=== PATIENT | female | born 1975 | race African-American/Black ===

== ENCOUNTER 2020-08-03 09:16 | Inpatient (IN) ==
[2020-08-03] MEDS ORDERED: AZITHROMYCIN 250 MG TABLET PO STA (10:57)
[2020-08-03] MEDS ORDERED: cefTRIAXone 1,000 MG in SODIUM CHLORIDE 0.9% 100 ML IV STA (10:57)
[2020-08-03 11:02] LABS: Basophils % 0.1 % (0.0-0.8); Hematocrit 41.1 VOL% (35.7-47.0); Hemoglobin 12.8 GM/DL (12.0-16.0); Immature Granulocytes % 0.8 %; Immature Granulocytes Absolute 0.07 #; Lymphocytes # 1.8 10*3/uL (1.4-4.0); Lymphocytes % 19.3 % (21.3-54.2); Mean Corpuscular HGB Conc 31.1 GM/DL (32-36); Mean Corpuscular Volume 90.1 FL (87-102); Mean Platelet Volume 9.8 FL (9.6-12.0); Monocytes % 5.3 % (1.7-12.7); Neutrophils % 74.5 % (38.7-73.9); Platelet Count 261 T/CUMM (130-400); Red Blood Count 4.56 MC/CUMM (3.8-5.5); Red Cell Distribution Width 12.7 % (9.3-17.3); White Blood Count 9.1 T/CUMM (4-12)
[2020-08-03 11:26] LABS: Calcium 8.8 MG/DL (8.5-10.1); Ferritin 521.2 ng/ml (8-252); Osmolality,Calculated 275.5 MOS/KG (273-304); Potassium 3.6 MMOL/L (3.5-5.1); Total Protein 7.4 G/DL (6.4-8.2)
[2020-08-03] MEDS ORDERED: MELATONIN 3 MG TABLET PO PRN (12:28)
[2020-08-03] MEDS ORDERED: DOCUSATE SODIUM 100 MG CAPSULE PO PRN (12:34)
[2020-08-03] MEDS: ACETAMINOPHEN 325 MG TABLET PO PRN (14:00)
[2020-08-03] MEDS: DEXAMETHASONE 4 MG/1 ML VIAL IV SCH (14:20)
[2020-08-03] MEDS: CETIRIZINE 10 MG TABLET PO SCH (14:26)
[2020-08-03] MEDS: ENOXAPARIN 60 MG/0.6 ML SYRINGE SUBCUT SCH (14:26)
[2020-08-03] MEDS ORDERED: AZITHROMYCIN INJ 500 MG in SODIUM CHLORIDE 0.9% 250 ML IV ONE (14:30)
[2020-08-03] MEDS ORDERED: REMDESIVIR 200 MG in SODIUM CHLORIDE 0.9% 210 ML IV ONE (15:30)
[2020-08-03] MEDS ORDERED: SODIUM CHLORIDE 0.9% 1,000 ML IV PRN (15:51)
[2020-08-03] MEDS: FAMOTIDINE 20 MG TABLET PO SCH (21:35)
[2020-08-03] MEDS: ASCORBIC ACID 500 MG TABLET PO SCH (21:35)
[2020-08-04 06:25] LABS: Hematocrit 40.3 VOL% (35.7-47.0); Hemoglobin 12.4 GM/DL (12.0-16.0); Immature Granulocytes % 1.2 %; Immature Granulocytes Absolute 0.08 #; Lymphocytes # 0.9 10*3/uL (1.4-4.0); Lymphocytes % 12.7 % (21.3-54.2); Mean Corpuscular HGB Conc 30.8 GM/DL (32-36); Mean Corpuscular Volume 91.6 FL (87-102); Mean Platelet Volume 10.1 FL (9.6-12.0); Monocytes % 4.4 % (1.7-12.7); Neutrophils % 81.7 % (38.7-73.9); Platelet Count 275 T/CUMM (130-400); Red Cell Distribution Width 12.8 % (9.3-17.3); White Blood Count 6.8 T/CUMM (4-12)
[2020-08-04 06:38] LABS: Albumin 2.6 G/DL (3.4-5.0); Bilirubin,Total 0.8 MG/DL (0.2-1.0); Calcium 9.1 MG/DL (8.5-10.1); Osmolality,Calculated 277.4 MOS/KG (273-304); Potassium 3.4 MMOL/L (3.5-5.1); Total Protein 7.7 G/DL (6.4-8.2)
[2020-08-04 06:39] LABS: Albumin 2.6 G/DL (3.4-5.0); Bilirubin,Direct 0.16 MG/DL (0.0-0.20); Bilirubin,Indirect 1.3 MG/DL (0.0-1.0); Bilirubin,Total 1.5 MG/DL (0.2-1.0); Total Protein 7.8 G/DL (6.4-8.2)
[2020-08-04] MEDS ORDERED: CELECOXIB 200 MG CAPSULE PO PRN (07:04)
[2020-08-04] MEDS: LEVOTHYROXINE 125 MCG TABLET PO SCH (08:12)
[2020-08-04] MEDS: FAMOTIDINE 20 MG TABLET PO SCH ×2 (08:12→20:36)
[2020-08-04] MEDS: POTASSIUM CHLORIDE 20 MEQ TABLET PO PRN ×3 (08:13→14:07)
[2020-08-04] MEDS: ASCORBIC ACID 500 MG TABLET PO SCH ×2 (08:13→20:36)
[2020-08-04] MEDS: ZINC GLUCONATE 50 MG TABLET PO SCH (08:13)
[2020-08-04] MEDS: CHOLECALCIFEROL 1,000 UNIT TABLET PO SCH (08:13)
[2020-08-04] MEDS: CETIRIZINE 10 MG TABLET PO SCH (08:15)
[2020-08-04] MEDS: METOPROLOL SUCCINATE XL 50 MG TABLET PO SCH (08:16)
[2020-08-04] MEDS: amLODIPine 5 MG TABLET PO SCH ×2 (08:16→20:36)
[2020-08-04] MEDS: ENOXAPARIN 60 MG/0.6 ML SYRINGE SUBCUT SCH ×2 (08:17→20:36)
[2020-08-04] MEDS: DEXAMETHASONE 4 MG/1 ML VIAL IV SCH (08:18)
[2020-08-04] MEDS: cefTRIAXone 1,000 MG in SODIUM CHLORIDE 0.9% 100 ML IV SCH (08:18)
[2020-08-04] MEDS ORDERED: CETIRIZINE 10 MG TABLET PO SCH (09:00)
[2020-08-04] MEDS ORDERED: DEXAMETHASONE 4 MG/1 ML VIAL IV SCH (09:00)
[2020-08-04] MEDS: MESALAMINE 1.2 GM PO SCH (09:57)
[2020-08-04] MEDS: REMDESIVIR 100 MG in SODIUM CHLORIDE 0.9% 100 ML IV SCH (09:58)
[2020-08-04 13:25] LABS: Hepatitis B Core IgM Quant 0.08 Index; Hepatitis B Surface Ag Quant < 0.10 Index; Hepatitis B Surface Ag Result Non-Reactive (NonReactive); Hepatitis C Virus Ab Quant 0.16 Index; Hepatitis C Virus Ab Result Non-Reactive (NonReactive)
[2020-08-04] MEDS: ACETAMINOPHEN 325 MG TABLET PO PRN (17:55)
[2020-08-04 18:08] VITALS: BP 119/89
[2020-08-04] MEDS: cloNIDine 0.1 MG TABLET PO SCH (20:58)
[2020-08-05 05:08] LABS: Basophils % 0.1 % (0.0-0.8); Eosinophils % 0.1 % (0.00-10.9); Hematocrit 39.8 VOL% (35.7-47.0); Hemoglobin 12.2 GM/DL (12.0-16.0); Immature Granulocytes % 1.1 %; Lymphocytes # 2.1 10*3/uL (1.4-4.0); Lymphocytes % 22.8 % (21.3-54.2); Mean Corpuscular HGB Conc 30.7 GM/DL (32-36); Mean Corpuscular Volume 92.1 FL (87-102); Mean Platelet Volume 10.2 FL (9.6-12.0); Neutrophils % 69.9 % (38.7-73.9); Platelet Count 333 T/CUMM (130-400); Red Blood Count 4.32 MC/CUMM (3.8-5.5); Red Cell Distribution Width 13.1 % (9.3-17.3); White Blood Count 9.2 T/CUMM (4-12)
[2020-08-05] MEDS: LEVOTHYROXINE 125 MCG TABLET PO SCH (06:16)
[2020-08-05 06:54] LABS: Albumin 2.7 G/DL (3.4-5.0); Bilirubin,Total 0.5 MG/DL (0.2-1.0); Calcium 9.3 MG/DL (8.5-10.1); Osmolality,Calculated 279.3 MOS/KG (273-304); Potassium 3.5 MMOL/L (3.5-5.1); Total Protein 7.8 G/DL (6.4-8.2)
[2020-08-05] MEDS: POTASSIUM CHLORIDE 20 MEQ TABLET PO PRN ×2 (08:11→10:42)
[2020-08-05] MEDS: METOPROLOL SUCCINATE XL 50 MG TABLET PO SCH (08:11)
[2020-08-05] MEDS: CETIRIZINE 10 MG TABLET PO SCH (08:11)
[2020-08-05] MEDS: ASCORBIC ACID 500 MG TABLET PO SCH ×2 (08:11→20:59)
[2020-08-05] MEDS: ZINC GLUCONATE 50 MG TABLET PO SCH (08:11)
[2020-08-05] MEDS: CHOLECALCIFEROL 1,000 UNIT TABLET PO SCH (08:11)
[2020-08-05] MEDS: FAMOTIDINE 20 MG TABLET PO SCH ×2 (08:11→20:59)
[2020-08-05] MEDS: DEXAMETHASONE 4 MG/1 ML VIAL IV SCH (08:12)
[2020-08-05] MEDS: cefTRIAXone 1,000 MG in SODIUM CHLORIDE 0.9% 100 ML IV SCH (08:12)
[2020-08-05] MEDS: ENOXAPARIN 60 MG/0.6 ML SYRINGE SUBCUT SCH ×2 (08:12→20:59)
[2020-08-05] MEDS: MESALAMINE 1.2 GM PO SCH (09:15)
[2020-08-05 09:21] LABS: Bilirubin,Urine Negative (Negative); Blood, Urine Negative (Negative); Glucose,Urine (UA) Negative (Negative); Ketones,Urine Negative (Negative); Mucus,Urine Occasional /LPF (Occasional); Nitrite,Urine Negative (Negative); Protein,Urine Negative; RBC,Urine <1 /HPF (0-4); Urine Appearance CLEAR (Clear); Urine Color Yellow (Yellow)
[2020-08-05] MEDS: REMDESIVIR 100 MG in SODIUM CHLORIDE 0.9% 100 ML IV SCH (10:29)
[2020-08-05] MEDS: amLODIPine 5 MG TABLET PO SCH ×2 (10:41→20:59)
[2020-08-05] MEDS: cloNIDine 0.1 MG TABLET PO SCH ×2 (10:41→20:59)
[2020-08-06 05:26] LABS: Basophils % 0.1 % (0.0-0.8); Hematocrit 38.5 VOL% (35.7-47.0); Hemoglobin 12.4 GM/DL (12.0-16.0); Immature Granulocytes % 1.8 %; Immature Granulocytes Absolute 0.12 #; Lymphocytes # 1.4 10*3/uL (1.4-4.0); Lymphocytes % 20.1 % (21.3-54.2); Mean Corpuscular HGB Conc 32.2 GM/DL (32-36); Mean Corpuscular Volume 88.5 FL (87-102); Mean Platelet Volume 9.8 FL (9.6-12.0); Monocytes % 8.2 % (1.7-12.7); Neutrophils % 69.8 % (38.7-73.9); Platelet Count 330 T/CUMM (130-400); Red Blood Count 4.35 MC/CUMM (3.8-5.5); White Blood Count 6.7 T/CUMM (4-12)
[2020-08-06 05:50] LABS: Albumin 2.5 G/DL (3.4-5.0); Bilirubin,Total 0.4 MG/DL (0.2-1.0); Calcium 9.4 MG/DL (8.5-10.1); Osmolality,Calculated 276.5 MOS/KG (273-304); Potassium 3.6 MMOL/L (3.5-5.1); Total Protein 7.8 G/DL (6.4-8.2)
[2020-08-06 06:00] LABS: Hypochromasia Slight; Microcytosis Slight; Platelet Estimate Adequate
[2020-08-06] MEDS: LEVOTHYROXINE 50 MCG TABLET PO SCH (06:11)
[2020-08-06] MEDS: ONDANSETRON 4 MG/2 ML VIAL IV PRN ×2 (06:55→21:15)
[2020-08-06] MEDS: DEXAMETHASONE 4 MG/1 ML VIAL IV SCH (08:09)
[2020-08-06] MEDS: METOPROLOL SUCCINATE XL 50 MG TABLET PO SCH (08:10)
[2020-08-06] MEDS: ZINC GLUCONATE 50 MG TABLET PO SCH (08:10)
[2020-08-06] MEDS: ASCORBIC ACID 500 MG TABLET PO SCH ×2 (08:10→21:41)
[2020-08-06] MEDS: CHOLECALCIFEROL 1,000 UNIT TABLET PO SCH (08:10)
[2020-08-06] MEDS: CETIRIZINE 10 MG TABLET PO SCH (08:10)
[2020-08-06] MEDS: cloNIDine 0.1 MG TABLET PO SCH ×2 (08:10→21:40)
[2020-08-06] MEDS: amLODIPine 5 MG TABLET PO SCH ×2 (08:10→21:41)
[2020-08-06] MEDS: AZITHROMYCIN 250 MG TABLET PO SCH (08:10)
[2020-08-06] MEDS: cefTRIAXone 1,000 MG in SODIUM CHLORIDE 0.9% 100 ML IV SCH (08:11)
[2020-08-06] MEDS: ENOXAPARIN 60 MG/0.6 ML SYRINGE SUBCUT SCH ×2 (08:11→21:40)
[2020-08-06] MEDS: FAMOTIDINE 20 MG TABLET PO SCH ×2 (08:11→21:41)
[2020-08-06] MEDS: POTASSIUM CHLORIDE 20 MEQ TABLET PO PRN (08:17)
[2020-08-06] MEDS: MESALAMINE 1.2 GM PO SCH (09:39)
[2020-08-06] MEDS: REMDESIVIR 100 MG in SODIUM CHLORIDE 0.9% 100 ML IV SCH (09:39)
[2020-08-06] MEDS: NEOMYCIN/POLYMYXIN/HC OTIC SOLN 10 ML BOTTLE BOTH EARS SCH ×2 (15:10→21:40)
[2020-08-07 05:59] LABS: Basophils % 0.2 % (0.0-0.8); Hematocrit 37.5 VOL% (35.7-47.0); Hemoglobin 11.9 GM/DL (12.0-16.0); Immature Granulocytes % 2.5 %; Immature Granulocytes Absolute 0.25 #; Lymphocytes # 1.8 10*3/uL (1.4-4.0); Lymphocytes % 17.8 % (21.3-54.2); Mean Corpuscular HGB Conc 31.7 GM/DL (32-36); Mean Corpuscular Volume 90.4 FL (87-102); Monocytes % 8.3 % (1.7-12.7); Neutrophils % 71.2 % (38.7-73.9); Platelet Count 354 T/CUMM (130-400); Red Blood Count 4.15 MC/CUMM (3.8-5.5); White Blood Count 9.9 T/CUMM (4-12)
[2020-08-07] MEDS: LEVOTHYROXINE 50 MCG TABLET PO SCH (06:20)
[2020-08-07 06:32] LABS: Albumin 2.6 G/DL (3.4-5.0); Bilirubin,Total 0.9 MG/DL (0.2-1.0); Osmolality,Calculated 279.3 MOS/KG (273-304); Potassium 3.9 MMOL/L (3.5-5.1); Total Protein 6.6 G/DL (6.4-8.2)
[2020-08-07] MEDS: cefTRIAXone 1,000 MG in SODIUM CHLORIDE 0.9% 100 ML IV SCH (08:15)
[2020-08-07] MEDS: DEXAMETHASONE 4 MG/1 ML VIAL IV SCH (08:30)
[2020-08-07] MEDS: cloNIDine 0.1 MG TABLET PO SCH ×2 (08:30→21:10)
[2020-08-07] MEDS: CHOLECALCIFEROL 1,000 UNIT TABLET PO SCH (08:30)
[2020-08-07] MEDS: CETIRIZINE 10 MG TABLET PO SCH (08:30)
[2020-08-07] MEDS: amLODIPine 5 MG TABLET PO SCH ×2 (08:30→21:10)
[2020-08-07] MEDS: ASCORBIC ACID 500 MG TABLET PO SCH ×2 (08:30→21:10)
[2020-08-07] MEDS: MESALAMINE 1.2 GM PO SCH (08:30)
[2020-08-07] MEDS: AZITHROMYCIN 250 MG TABLET PO SCH (08:30)
[2020-08-07] MEDS: FAMOTIDINE 20 MG TABLET PO SCH ×2 (08:30→21:10)
[2020-08-07] MEDS: ZINC GLUCONATE 50 MG TABLET PO SCH (08:30)
[2020-08-07] MEDS: ENOXAPARIN 60 MG/0.6 ML SYRINGE SUBCUT SCH ×2 (08:30→21:12)
[2020-08-07] MEDS: METOPROLOL SUCCINATE XL 50 MG TABLET PO SCH (08:30)
[2020-08-07] MEDS: NEOMYCIN/POLYMYXIN/HC OTIC SOLN 10 ML BOTTLE BOTH EARS SCH ×3 (08:30→21:14)
[2020-08-07 09:39] LABS: Free T4 (Free Thyroxine) 1.19 NG/DL (0.76-1.46); Thyroid Stimulating Hormone < 0.005 uIU/ml (0.358-3.74)
[2020-08-07] MEDS: REMDESIVIR 100 MG in SODIUM CHLORIDE 0.9% 100 ML IV SCH (10:10)
[2020-08-07 10:27] LABS: ABG Base Excess -4.8 MMOL/L (-2.5-2.5); ABG HCO3 19.6 MMOL/L (20-26); ABG Oxygen Saturation 93.2 % (95-100); ABG PCO2 34.1 MM HG (35-48); ABG PH 7.377 (7.35-7.45); ABG PO2 71.8 MM HG (80-95); ABG TCO2 20.6 MMOL/L (23-27); Allen Test Positive; Pt O2 Delivery Device Other
[2020-08-07] MEDS: MELATONIN 3 MG TABLET PO SCH (21:10)
[2020-08-08 04:54] LABS: Calcium 9.1 MG/DL (8.5-10.1); Osmolality,Calculated 280.4 MOS/KG (273-304); Potassium 3.6 MMOL/L (3.5-5.1)
[2020-08-08] MEDS ORDERED: METOPROLOL SUCCINATE XL 25 MG TABLET PO SCH (09:00)
[2020-08-08] MEDS: cefTRIAXone 1,000 MG in SODIUM CHLORIDE 0.9% 100 ML IV SCH (10:00)
[2020-08-08] MEDS: ASPIRIN EC 81 MG TABLET PO SCH (10:10)
[2020-08-08] MEDS: MESALAMINE 1.2 GM PO SCH (10:10)
[2020-08-08] MEDS: cloNIDine 0.1 MG TABLET PO SCH ×2 (10:10→20:58)
[2020-08-08] MEDS: ZINC GLUCONATE 50 MG TABLET PO SCH (10:10)
[2020-08-08] MEDS: DEXAMETHASONE 4 MG/1 ML VIAL IV SCH (10:10)
[2020-08-08] MEDS: AZITHROMYCIN 250 MG TABLET PO SCH (10:10)
[2020-08-08] MEDS: ASCORBIC ACID 500 MG TABLET PO SCH ×2 (10:10→20:55)
[2020-08-08] MEDS: POTASSIUM CHLORIDE 20 MEQ TABLET PO PRN ×2 (10:10→11:30)
[2020-08-08] MEDS: CHOLECALCIFEROL 1,000 UNIT TABLET PO SCH (10:10)
[2020-08-08] MEDS: CETIRIZINE 10 MG TABLET PO SCH (10:10)
[2020-08-08] MEDS: amLODIPine 5 MG TABLET PO SCH (10:10)
[2020-08-08] MEDS: FAMOTIDINE 20 MG TABLET PO SCH ×2 (10:10→20:56)
[2020-08-08] MEDS: NEOMYCIN/POLYMYXIN/HC OTIC SOLN 10 ML BOTTLE BOTH EARS SCH ×3 (10:10→20:58)
[2020-08-08] MEDS: ENOXAPARIN 60 MG/0.6 ML SYRINGE SUBCUT SCH ×2 (10:20→21:00)
[2020-08-08] MEDS: methylPREDNISolone SOD SUC 40 MG/1 ML VIAL IV SCH ×2 (10:50→18:21)
[2020-08-08] MEDS: MELATONIN 3 MG TABLET PO SCH (20:58)
[2020-08-09] MEDS: methylPREDNISolone SOD SUC 40 MG/1 ML VIAL IV SCH ×3 (02:36→18:46)
[2020-08-09 05:48] LABS: Basophils # 0.1 10*3/uL (0.0-0.2); Basophils % 0.6 % (0.0-0.8); Hematocrit 36.6 VOL% (35.7-47.0); Immature Granulocytes % 3.8 %; Immature Granulocytes Absolute 0.38 #; Lymphocytes # 1.2 10*3/uL (1.4-4.0); Mean Corpuscular HGB Conc 32.8 GM/DL (32-36); Mean Platelet Volume 9.9 FL (9.6-12.0); Monocytes % 5.8 % (1.7-12.7); Neutrophils % 77.8 % (38.7-73.9); Platelet Count 370 T/CUMM (130-400); Red Blood Count 4.16 MC/CUMM (3.8-5.5); Red Cell Distribution Width 12.9 % (9.3-17.3); White Blood Count 10.1 T/CUMM (4-12)
[2020-08-09 06:28] LABS: Calcium 9.3 MG/DL (8.5-10.1); Osmolality,Calculated 275.7 MOS/KG (273-304); Potassium 3.6 MMOL/L (3.5-5.1)
[2020-08-09] MEDS: POTASSIUM CHLORIDE 20 MEQ TABLET PO PRN ×2 (08:29→12:56)
[2020-08-09] MEDS: CHOLECALCIFEROL 1,000 UNIT TABLET PO SCH (08:29)
[2020-08-09] MEDS: ENOXAPARIN 60 MG/0.6 ML SYRINGE SUBCUT SCH ×2 (08:30→20:17)
[2020-08-09] MEDS: ZINC GLUCONATE 50 MG TABLET PO SCH (08:30)
[2020-08-09] MEDS: cloNIDine 0.1 MG TABLET PO SCH ×2 (08:30→20:17)
[2020-08-09] MEDS: FAMOTIDINE 20 MG TABLET PO SCH ×2 (08:30→20:17)
[2020-08-09] MEDS: ASCORBIC ACID 500 MG TABLET PO SCH ×2 (08:30→20:17)
[2020-08-09] MEDS: ASPIRIN EC 81 MG TABLET PO SCH (08:30)
[2020-08-09] MEDS: AZITHROMYCIN 250 MG TABLET PO SCH (08:30)
[2020-08-09] MEDS: CETIRIZINE 10 MG TABLET PO SCH (08:30)
[2020-08-09] MEDS: NEOMYCIN/POLYMYXIN/HC OTIC SOLN 10 ML BOTTLE BOTH EARS SCH ×3 (08:31→21:02)
[2020-08-09] MEDS: cefTRIAXone 1,000 MG in SODIUM CHLORIDE 0.9% 100 ML IV SCH (08:31)
[2020-08-09] MEDS: MESALAMINE 1.2 GM PO SCH (08:40)
[2020-08-09] MEDS: ONDANSETRON 4 MG/2 ML VIAL IV PRN (16:23)
[2020-08-09] MEDS: MELATONIN 3 MG TABLET PO SCH (20:16)
[2020-08-09] MEDS ORDERED: ALUMINUM/MAGNES/SIMETH MAX STR 30 ML UDCUP PO PRN (20:46)
[2020-08-10] MEDS: methylPREDNISolone SOD SUC 40 MG/1 ML VIAL IV SCH ×2 (03:29→17:15)
[2020-08-10] MEDS: ENOXAPARIN 60 MG/0.6 ML SYRINGE SUBCUT SCH ×2 (08:28→20:11)
[2020-08-10] MEDS: ASPIRIN EC 81 MG TABLET PO SCH (08:28)
[2020-08-10] MEDS: cloNIDine 0.1 MG TABLET PO SCH ×2 (08:28→20:11)
[2020-08-10] MEDS: ZINC GLUCONATE 50 MG TABLET PO SCH (08:28)
[2020-08-10] MEDS: FAMOTIDINE 20 MG TABLET PO SCH ×2 (08:29→20:12)
[2020-08-10] MEDS: MESALAMINE 1.2 GM PO SCH (08:29)
[2020-08-10] MEDS: NEOMYCIN/POLYMYXIN/HC OTIC SOLN 10 ML BOTTLE BOTH EARS SCH (08:29)
[2020-08-10] MEDS: CETIRIZINE 10 MG TABLET PO SCH (08:29)
[2020-08-10] MEDS: ASCORBIC ACID 500 MG TABLET PO SCH ×2 (08:29→20:11)
[2020-08-10] MEDS: CHOLECALCIFEROL 1,000 UNIT TABLET PO SCH (08:29)
[2020-08-10] MEDS: cefTRIAXone 1,000 MG in SODIUM CHLORIDE 0.9% 100 ML IV SCH (08:30)
[2020-08-10] MEDS: MELATONIN 3 MG TABLET PO SCH (20:11)
[2020-08-10] MEDS: ONDANSETRON 4 MG/2 ML VIAL IV PRN (20:39)
[2020-08-11 06:21] LABS: Basophils % 0.1 % (0.0-0.8); Hematocrit 38.2 VOL% (35.7-47.0); Hemoglobin 12.3 GM/DL (12.0-16.0); Immature Granulocytes % 5.1 %; Lymphocytes # 0.9 10*3/uL (1.4-4.0); Lymphocytes % 7.8 % (21.3-54.2); Mean Corpuscular HGB Conc 32.2 GM/DL (32-36); Mean Corpuscular Volume 87.8 FL (87-102); Mean Platelet Volume 9.9 FL (9.6-12.0); Monocytes % 6.7 % (1.7-12.7); Neutrophils % 80.3 % (38.7-73.9); Platelet Count 431 T/CUMM (130-400); Red Blood Count 4.35 MC/CUMM (3.8-5.5); Red Cell Distribution Width 12.8 % (9.3-17.3); White Blood Count 11.7 T/CUMM (4-12)
[2020-08-11 06:36] LABS: Osmolality,Calculated 281.4 MOS/KG (273-304); Potassium 3.5 MMOL/L (3.5-5.1)
[2020-08-11] MEDS: methylPREDNISolone SOD SUC 40 MG/1 ML VIAL IV SCH (06:44)
[2020-08-11 06:52] LABS: Lymphocytes 8 % (20-55); Segmented Neutrophils 87 % (50-85); Total Cells Counted 100
[2020-08-11 06:53] LABS: Hypochromasia 1+; Microcytosis Slight; Platelet Estimate Increased
[2020-08-11] MEDS: MESALAMINE 1.2 GM PO SCH (09:13)
[2020-08-11] MEDS: ASCORBIC ACID 500 MG TABLET PO SCH (09:13)
[2020-08-11] MEDS: CETIRIZINE 10 MG TABLET PO SCH (09:13)
[2020-08-11] MEDS: cloNIDine 0.1 MG TABLET PO SCH (09:13)
[2020-08-11] MEDS: ZINC GLUCONATE 50 MG TABLET PO SCH (09:13)
[2020-08-11] MEDS: FAMOTIDINE 20 MG TABLET PO SCH (09:13)
[2020-08-11] MEDS: CHOLECALCIFEROL 1,000 UNIT TABLET PO SCH (09:13)
[2020-08-11] MEDS: ASPIRIN EC 81 MG TABLET PO SCH (09:13)
[2020-08-11] MEDS: ENOXAPARIN 60 MG/0.6 ML SYRINGE SUBCUT SCH (09:13)
== END 2020-08-11 15:30 | disposition home or self-care (01) | DRG 177 ==
LOC: EDBD → EDUNIT# → N.ED 09:16 → SUATTDRO 12:34 → N.EDINP 12:34 → N.CC 13:58
PROVIDERS: ADMIT Internal Medicine; ATTEND Internal Medicine